=== PATIENT | female | born 1965 | race Caucasian/White ===

== ENCOUNTER 2019-01-19 06:40 | Day surgery (SDC) | payer BC ==
[2019-01-19] MEDS ORDERED: LACTATED RINGER'S 1,000 ML IV (09:00)
[2019-01-19] MEDS ORDERED: MIDAZOLAM 1 MG/ML 2 ML INJ (10:46)
[2019-01-19] MEDS ORDERED: PROPOFOL 200 MG INJ (10:46)
[2019-01-19] MEDS ORDERED: EPHEDrine 25 MG/5 ML SYG (10:46)
[2019-01-19] MEDS ORDERED: FENTAnyl 50 MCG/ML VIAL (10:54)
[2019-01-19] MEDS: LIDOCAINE 1%/EPI 30 ML INJ (11:24)
[2019-01-19] MEDS ORDERED: FENTAnyl 50 MCG/ML VIAL IV (11:30)
[2019-01-19] MEDS ORDERED: MEPERIDINE 25 MG INJ IV (11:30)
[2019-01-19] MEDS ORDERED: HYDROmorphONE 1 MG/5 ML IV SYRINGE IV ×3 (11:30)
[2019-01-19] MEDS ORDERED: PROCHLORPERAZINE 10 MG INJ IV (11:30)
[2019-01-19] MEDS ORDERED: ONDANSETRON 4 MG INJ IV (11:30)
[2019-01-19] MEDS ORDERED: DIPHENHYDRAMINE 50 MG INJ IV (11:30)
== END 2019-01-19 12:35 | disposition home or self-care (01) ==
LOC: SDS 06:40
DX: K14.8 Other diseases of tongue (principal)
CPT/HCPCS: 41110; 88307